=== PATIENT | male | born 1955 | race Caucasian/White ===

== ENCOUNTER → 2024-02-06 10:14 | Outpatient (REF) | payer BC, SELFPAY | LOC: HWRAD 10:14 | PROVIDERS: ATTENDING PHYSICIAN Internal Medicine Rheumatology; FAMILY PHYSICIAN Family Medicine | DX: M06.09 Rheumatoid arthritis without rheumatoid factor, multiple sites (principal) | CPT/HCPCS: 71046; 73130 ==

== ENCOUNTER 2024-07-18 06:23 | Day surgery (SDC) | payer BC, SELFPAY | END 2024-07-18 14:02 | disposition home or self-care (01) | LOC: GI 06:23 | PROVIDERS: ATTENDING PHYSICIAN Internal Medicine Gastroenterology | DX: Z12.11 Encounter for screening for malignant neoplasm of colon (principal); K57.30 Diverticulosis of large intestine without perforation or abscess without bleeding; K64.0 First degree hemorrhoids; Z80.0 Family history of malignant neoplasm of digestive organs | CPT/HCPCS: G0105 ==